=== PATIENT | male | born 1950 | race Caucasian/White ===

== ENCOUNTER 2021-05-25 09:51 | Outpatient (CLI) | payer BC | END 2021-05-25 09:52 | disposition home or self-care (01) | LOC: CSHWCC 09:51 | PROVIDERS: ATTEND Nurse Practitioner Family | DX: L98.492 Non-pressure chronic ulcer of skin of other sites with fat layer exposed (principal); E78.2 Mixed hyperlipidemia; G89.4 Chronic pain syndrome; I25.10 Atherosclerotic heart disease of native coronary artery without angina pectoris; L26 Exfoliative dermatitis; M06.9 Rheumatoid arthritis, unspecified | CPT/HCPCS: 99212; G0463 ==

== ENCOUNTER 2023-05-04 08:08 | Outpatient (CLI) | payer MEDICARE, BC | END 2023-05-04 08:09 | disposition home or self-care (01) | LOC: CSHWCC 08:08 | PROVIDERS: ATTEND Nurse Practitioner Family | DX: S31.109D Unspecified open wound of abdominal wall, unspecified quadrant without penetration into peritoneal cavity, subsequent encounter (principal) | CPT/HCPCS: 17250 ==

== ENCOUNTER 2023-05-26 08:19 | Outpatient (CLI) | payer MEDICARE, BC | END 2023-05-26 08:20 | disposition home or self-care (01) | LOC: CSHWCC 08:19 | PROVIDERS: ATTEND Nurse Practitioner Family | DX: S31.109D Unspecified open wound of abdominal wall, unspecified quadrant without penetration into peritoneal cavity, subsequent encounter (principal) | CPT/HCPCS: 97139; G0463; 99212 ==

== ENCOUNTER 2024-07-10 12:42 | Outpatient (CLI) | payer MEDICARE | END 2024-07-10 12:43 | disposition home or self-care (01) | LOC: CSHWCC 12:42 | PROVIDERS: ATTEND Nurse Practitioner Family | DX: L24.A9 Irritant contact dermatitis due friction or contact with other specified body fluids (principal) | CPT/HCPCS: 99214; G0463 ==

== ENCOUNTER 2024-07-24 10:52 | Outpatient (CLI) | payer MEDICARE | END 2024-07-24 10:53 | disposition home or self-care (01) | LOC: CSHWCC 10:52 | PROVIDERS: ATTEND Nurse Practitioner Family | DX: L24.A9 Irritant contact dermatitis due friction or contact with other specified body fluids (principal) | CPT/HCPCS: 99212; G0463 ==

== ENCOUNTER 2024-08-07 08:51 | Outpatient (CLI) | payer MEDICARE | END 2024-08-07 08:52 | disposition home or self-care (01) | LOC: CSHWCC 08:51 | PROVIDERS: ATTEND Nurse Practitioner Family | DX: L24.A9 Irritant contact dermatitis due friction or contact with other specified body fluids (principal) | CPT/HCPCS: 99212; G0463 ==